=== PATIENT | female | born 1960 ===

== ENCOUNTER → 2019-04-11 | Outpatient (CLI) | payer OTHER ==
--- NOTE | 2019-04-11 10:45 | WOMENS IMAGING REPORT ---
EXAM DESCRIPTION: BILAT SCREENING MAMMO W/CAD COMPLETED DATE/TIME: 04/11/2019 10:22 am REASON FOR STUDY: Z12.31 SCREENING MAMMO Z12.31 ENCNTR SCREEN MAMMOGRAM FOR MALIGNANT NEOPLASM OF B RE COMPARISON: 10/05/2014. EXAM PARAMETERS: Standard craniocaudal and mediolateral oblique views of each breast recorded using digital acquisition. Read with the assistance of CAD. .[facility] - [employer] Care Coordinator Version 9.2 LIMITATIONS: None. FINDINGS: No suspicious masses, suspicious calcifications or architectural distortion. No areas of c oncern. IMPRESSION: Negative MAMMOGRAM. BIRADS 1 BREAST DENSITY: b. There are scattered areas of fibroglandular density. BIRAD: ASSESSMENT: 1 NEGATIVE RECOMMENDATION: ROUTINE SCREENING COMMENT: The patient has been notified of the results by letter per MQSA requirements. Additional no tification policies are in place for contacting patient with suspicious or incomplete findings. Quality ID #[id number]: The [employer] recommends an annual screening mammogram for women aged 40 years or over. This facility utilizes a reminder system to ensure that all patients receive reminder letters, and/or direct phone calls for appointments. This includes reminders for routine scr eening mammograms, diagnostic mammograms, or other Breast Imaging Interventions when appropriate. Th is patient will be placed in the appropriate reminder system. TECHNICAL DOCUMENTATION: FINDING NUMBER: (1) ASSESSMENT: (1) JOB ID: [id number] 2010 [employer]- All Rights Reserved Reading location - IP/workstation name: [email or web address]
== END ==
LOC: WI 10:05
PROVIDERS: ATTEND Physician Assistant
DX: Z12.31 Encounter for screening mammogram for malignant neoplasm of breast (principal)
CPT/HCPCS: 77067

== ENCOUNTER 2020-02-10 20:36 | Emergency (ER) | payer OTHER ==
--- NOTE | 2020-02-10 20:58 | ER Document Report ---
ED Medical Screen (RME) - General Chief Complaint: High Blood Pressure Stated Complaint: BLOOD PRESSURE ISSUES Time Seen by Provider: 02/10/20 20:52 Primary Care Provider: MAXINE WAGNER PA [Primary Care Provider] - Follow up as needed Mode of Arrival: Ambulatory Information source: Patient Notes: 59-year-old female patient presented to the emergency department chief complaint of elevated blood pressure and "I do not feel right". Patient reports this morning when she woke up she felt very dizzy, checked her blood pressure found to be in the 170s. Patient does not take any antihypertensive. She was diagnosed with borderline hypertension many years ago but is never required medication. Patient reports no specific chest pain or shortness of breath although patient is dyspneic while talking to us in triage. Lung sounds clear and equal bilaterally, no acute distress noted. I have greeted and performed a rapid initial assessment of this patient. A com prehensive ED assessment and evaluation of the patient, analysis of test results and completion of the medical decision making process will be conducted by additional ED providers. I have specifically instructed the patient or family members with the patient to immediately return to any nursing staff should anything change in the patient's condition or with their chief complaint. TRAVEL OUTSIDE OF THE [place] IN LAST 30 DAYS: No Physical Exam - Vital signs Vitals: Temp Pulse Resp BP Pulse Ox 98.1 F 77 17 212/94 H 98 02/10/20 20:47 02/10/20 20:47 02/10/20 20:47 02/10/20 20:47 02/10/20 20:47 Course - Vital Signs Vital signs: Temp Pulse Resp BP Pulse Ox 98.1 F 77 17 212/94 H 98 02/10/20 20:47 02/10/20 20:47 02/10/20 20:47 02/10/20 20:47 02/10/20 20:47 Doctor's Discharge - Discharge Referrals: MAXINE WAGNER PA [Primary Care Provider] - Follow up as needed
--- NOTE | 2020-02-10 22:40 | RADIOLOGY REPORT (SQ) ---
EXAM DESCRIPTION: XR CHEST 1 VIEW COMPLETED DATE/TME: 02/10/2020 22:05 CLINICAL HISTORY: 59 years Female, elevated BP/dyspnea COMPARISON: None. NUMBER OF VIEWS/TECHNIQUE: 1/AP FINDINGS: Adequate lung volume, clear parenchyma, normal cardiac silhouette, and intact bony thorax.Right upper abdominal clips. IMPRESSION: No acute cardiopulmonary findings.
[2020-02-11 02:08] LABS: ABSOLUTE BASOPHILS # (AUTO) 0.1 10^3/uL (0.0-0.2); ABSOLUTE EOSINOPHILS # (AUTO) 0.2 10^3/uL (0.0-0.6); ABSOLUTE MONOCYTES (AUTO) 0.5 10^3/uL (0.1-1.4); ABSOLUTE NEUT (AUTO) 6.2 10^3/uL (1.7-8.2); BASOPHILS % (AUTO) 0.8 % (0-2); EOSINOPHILS % (AUTO) 1.9 % (0-6); HEMATOCRIT 40.4 % (36.0-47.0); HEMOGLOBIN 13.9 g/dL (12.0-15.5); LYMPHOCYTES % (AUTO) 30.1 % (13-45); MEAN CORPUSCULAR HEMOGLOBIN 28.8 pg (27.0-33.4); MEAN CORPUSCULAR HGB CONC 34.4 g/dL (32.0-36.0); MEAN CORPUSCULAR VOLUME 84 fl (80-97); MONOCYTES % (AUTO) 5.1 % (3-13); PLATELET COUNT 254 10^3/uL (150-450); RED BLOOD COUNT 4.81 10^6/uL (3.72-5.28); RED CELL DISTRIBUTION WIDTH 13.2 % (11.5-14.0); SEGMENTED NEUTROPHILS % (AUTO) 62.1 % (42-78); TOTAL CELLS COUNTED % (AUTO) 100 %; WHITE BLOOD COUNT 9.9 10^3/uL (4.0-10.5)
[2020-02-11 02:36] LABS: ALBUMIN 4.9 g/dL (3.5-5.0); ALKALINE PHOSPHATASE 73 U/L (38-126); ANION GAP 10 (5-19); ASPARTATE AMINO TRANSFERASE 28 U/L (14-36); BILIRUBIN,DIRECT 0.3 mg/dL (0.0-0.4); BILIRUBIN,TOTAL 0.7 mg/dL (0.2-1.3); BLOOD UREA NITROGEN 11 mg/dL (7-20); CARBON DIOXIDE 30 mmol/L (22-30); CHLORIDE 104 mmol/L (98-107); GLUCOSE 110 mg/dL (75-110); POTASSIUM 4.4 mmol/L (3.6-5.0); TOTAL PROTEIN 8.5 g/dL (6.3-8.2)
[2020-02-11 03:52] VITALS: BP 159/81
[2020-02-11] MEDS ORDERED: ACETAMINOPHEN 325 MG TABLET PO ONE (03:53)
--- NOTE | 2020-02-11 03:57 | ER Document Report ---
ED Blood Pressure Problem - General Chief Complaint: Headache Stated Complaint: BLOOD PRESSURE ISSUES Time Seen by Provider: 02/10/20 20:52 Primary Care Provider: SMITH THACKER MD [Primary Care Provider] - 02/12/20 MAXINE WAGNER PA [NO LOCAL MD] - Follow up as needed KALINA EASTMAN MD [ACTIVE STAFF] - Follow up as needed Mode of Arrival: Ambulatory Information source: Patient Notes: 59-year-old female presented to ED for complaint of elevated blood pressure. She states she woke up and her blood pressure was high and she did not feel well. She states she checked her blood pressure and it was over 170 and so she became very anxious. She states she does not take any occasions for her blood pressure. She states she has been told she was borderline but never required medications. She did not have any shortness of breath chest pain or any other symptoms at time of exam. Constitutional: Negative for fever. HENT: Negative for sore throat. Eyes: Negative for visual changes. Cardiovascular: Negative for chest pain. States she felt a little dizzy this morning when her blood pressure was elevated and then later in the day when it was elevated again she decided to come to the emergency room. She states she is changed her doctor Dr. Dr. Thacker and she will see him in the next couple days to be sure that she gets get started on blood pressure medicine. I have recommended that she keep a log of her blood pressure twice a day until she can see the primary care doctor. Respiratory: Negative for shortness of breath. Gastrointestinal: Negative for abdominal pain, vomiting or diarrhea. Genitourinary: Negative for dysuria. Musculoskeletal: Negative for back pain. Skin: Negative for rash. Neurological: Negative for headaches, weakness or numbness. 10 point ROS negative except as marked above and in HPI. VITAL SIGNS: Within normal limits. GENERAL: No acute distress, non-toxic appearance. HEAD: Normal with no signs of head trauma. EYES: PERRLA, EOMI, conjunctiva normal, no discharge. EARS: Hearing grossly intact. NOSE: Normal. THROAT: Oropharynx is normal. NECK: Normal range of motion, no tenderness, supple, no lymphadenopathy, No adenopathy, no JVD. CHEST: Clear breath sounds bilaterally. No wheezes, rales, or rhonchi. CARDIAC: Regular rate and rhythm. S1 and S2, without murmurs, gallops, or rubs. VASCULAR: No Edema. Peripheral pulses normal and equal in all extremities. ABDOMEN: Normal and soft with no tenderness, no masses or pulsatile masses. GASTROINTESTINAL: Bowel sounds normal GENITOURINARY: Normal, No tenderness LYMPATHTIC: No lymphadenopathy noted. MUSCULOSKELETAL: Good range of motion of all major joints. Extremities without clubbing, cyanosis or edema. NEUROLOGICAL: Alert and oriented x 3. No focal sensory or strength deficits. Speech normal. Follows commands appropriately. PSYCHIATRIC: Normal Affect, judgement and mood. SKIN: Normal appearance with no rashes or lesions. TRAVEL OUTSIDE OF THE [place] IN LAST 30 DAYS: No - HPI Patient complains to provider of: High blood pressure Onset: This morning Onset/Duration: Intermittent Quality of pain: No pain Severity: None Pain Level: Denies Problem is: Chronic problem - Borderline Pt currently taking medication for problem: No Associated symptoms: Dizziness Similar symptoms previously: Yes Recently seen / treated by doctor: No - Related Data Home Medications: supplements Past Medical History - General Information source: Patient - Social History Smoking Status: Former Smoker Frequency of alcohol use: Occasional Drug Abuse: None Lives with: Alone Family History: Reviewed & Not Pertinent Patient has suicidal ideation: No Patient has homicidal ideation: No - Past Medical History Cardiac Medical History: Reports: Hx Hypertension Pulmonary Medical History: Reports: None EENT Medical History: Reports: Ears - Many years Neurological Medical History: Reports: None Endocrine Medical History: Reports: None Renal/ Medical History: Reports: None Malignancy Medical History: Reports: None GI Medical History: Reports: None Musculoskeletal Medical History: Reports None Skin Medical History: Reports None Psychiatric Medical History: Reports: None Traumatic Medical History: Reports: None Infectious Medical History: Reports: None Past Surgical History: Reports: Hx Cholecystectomy, Hx Hysterectomy, Hx Myringotomy - Multiple ear surgeries tympanoplasty, Hx Oral Surgery - General surgery to correct overbite - Immunizations Immunizations up to date: No Hx Diphtheria, Pertussis, Tetanus Vaccination: No Physical Exam - Vital signs Vitals: Temp Pulse Resp BP Pulse Ox 98.1 F 77 17 212/94 H 98 02/10/20 20:47 02/10/20 20:47 02/10/20 20:47 02/10/20 20:47 02/10/20 20:47 Course - Re-evaluation Re-evalutation: 02/11/20 08:51 Blood pressure was not high enough to treat when I saw the patient or when I discharged the patient. It was 150s over 80s both times. I did instruct patient to keep a log of her blood pressures and take this to the primary care and discuss blood pressure medications. She did not have any dizziness headache or any pain at her visit. - Vital Signs Vital signs: Temp Pulse Resp BP Pulse Ox 97.9 F 71 18 159/81 H 97 02/11/20 03:49 02/11/20 03:49 02/11/20 03:49 02/11/20 03:49 02/11/20 03:49 - Laboratory Results Result Diagrams: 02/11/20 01:53 02/11/20 01:53 Laboratory Results Interpreted: 02/11/20 01:53 Total Protein 8.5 H Critical Laboratory Results Reviewed: No Critical Results - Radiology Results Critical Radiology Results Reviewed: No Critical Results Discharge - Discharge Clinical Impression: Chronic left ear pain High blood pressure Qualifiers: Hypertension type: unspecified Qualified Code(s): I10 - Essential (primary) hypertension Condition: Stable Disposition: HOME, SELF-CARE Additional Instructions: HIGH BLOOD PRESSURE, NOT TREAT: When your blood pressure was taken today it was elevated. Today's reading was _159/81 . We do not think you need to have your blood pressure treated today. Sometimes, stress or illness causes a temporary elevation of your blood pressure. We suggest that you get your blood pressure measured again during the next few days to see if this elevated blood pressure is more than a temporary abnormality. If your blood pressure is greater than 150/90 on each occasion, you must have treatment. Some simple things you can do to help are: If you have blood pressure medicine but aren't using it regularly, start taking it again. Get some aerobic exercise for at least 20 minutes on a daily basis. (See your doctor before beginning a new exercise program.) Eat a low-fat diet. Lose excess weight. Avoid salty foods and avoid adding salt to any of the foods you eat. Avoid diet pills, decongestants, "energizing" herbs, and other medicines that elevate blood pressure. If left untreated, hypertension greatly enhances your risk for developing heart disease and strokes. Please don't ignore this problem. You state you have chronic left ear pain with Mnire's disease.. Please follow-up with a ear nose and throat is partial list to see if there is any treatments that they can do for this pain that you are having. I have treated with Tylenol tonight but you need to follow-up with the ENT specialist. Follow-up with your primary care doctor on Wednesday to schedule a follow-up appointment. Please until you can follow-up in his office take your blood pressure twice a day and keep a record of this for him when you do follow-up. FOLLOW-UP CARE: If you have been referred to a physician for follow-up care, call the physicians office for an appointment as you were instructed or within the next two days. If you experience worsening or a significant change in your symptoms, notify the physician immediately or return to the Emergency Department at any time for re-evaluation. Forms: Elevated Blood Pressure Referrals: MAXINE WAGNER PA [NO LOCAL MD] - Follow up as needed KALINA EASTMAN MD [ACTIVE STAFF] - Follow up as needed SMITH THACKER MD [Primary Care Provider] - 02/12/20
--- NOTE | 2020-02-11 09:47 | EKG REPORT ---
SEVERITY:- ABNORMAL ECG - SINUS RHYTHM CONSIDER LEFT VENTRICULAR HYPERTROPHY PROBABLE INFERIOR INFARCT, OLD : Confirmed by: Anup Jordan MD 11-Feb-2020 09:45:58
== END 2020-02-11 04:13 | disposition home or self-care (01) ==
LOC: ER 20:36
DX: G89.29 Other chronic pain (principal); H92.02 Otalgia, left ear; I10 Essential (primary) hypertension; Z90.49 Acquired absence of other specified parts of digestive tract; Z90.710 Acquired absence of both cervix and uterus
CPT/HCPCS: 36415; 71045; 80053; 84484; 85025; 93005; 93010; 99285